=== PATIENT | female | born 1960 | race Caucasian/White ===

== ENCOUNTER 2020-04-09 10:51 | Outpatient (CLI) | payer OTHER, SELFPAY ==
--- NOTE | ~2020-04-09 | XR_ITS ---
XR shoulder RT min 2V DATE: 04/09/2020 11:15 INDICATION: Right shoulder lateral pain. No injury. TECHNIQUE: 4 views COMPARISON: None FINDINGS: Surgical overlie the lower cervical area left and right of midline. Surgical clips overlie the right axilla. No fracture, dislocation, periosteal reaction or bone destruction or abnormal soft tissue calcificati on of the right shoulder is detected. Normal alignment at the acromioclavicular and glenohumeral join ts. IMPRESSION: No significant radiographic abnormality of the right shoulder Reviewed, dictated and finalized at location B.
== END 2020-04-09 10:52 | disposition home or self-care (01) ==
LOC: ANHIMG 10:57
PROVIDERS: PCP Family Medicine; Visit Provider Orthopaedic Surgery
DX: M25.511 Pain in right shoulder (principal)
CPT/HCPCS: 73030

== ENCOUNTER 2021-01-23 08:55 | Outpatient (CLI) | payer OTHER, SELFPAY ==
[2021-01-23 09:31] LABS: Basophils Absolute Auto 0.1 K/mm3 (0.0-0.1); Basophils Percent Auto 0.8 % (0.2-1.2); Eosinophils Absolute Auto 0.2 K/mm3 (0-0.3); Eosinophils Percent Auto 2.3 % (0-4.4); Hematocrit 39.8 % (37.0-47.0); Hemoglobin 13.4 g/dL (12.0-15.0); Immature Granulocyte Absolute 0.02 K/mm3 (0.00-0.031); Immature Granulocyte Percent A 0.2 % (0-0.5); Lymphocytes Absolute Auto 2.95 K/mm3 (0.9-3.2); Lymphocytes Percent Auto 34.3 % (18.3-44.2); Mean Corpuscular HGB Conc 33.7 g/dl (32-36); Mean Corpuscular Hemoglobin 29.2 pg (26-34); Mean Corpuscular Volume 86.7 fl (80-100); Mean Platelet Volume 10.4 fl (7.4-10.4); Monocytes Absolute Auto 0.6 K/mm3 (0.1-0.6); Monocytes Percent Auto 7.2 % (2.6-8.5); Neutrophils Absolute Auto 4.8 K/mm3 (1.3-6.7); Neutrophils Percent Auto 55.2 % (45.5-73.1); Platelet Count Result 270 k/mm3 (150-375); Red Blood Count 4.59 M/mm3 (4.2-5.4); Red Cell Distribution Width 11.9 % (11.5-14.5); White Blood Count 8.6 K/mm3 (4.5-10.0)
[2021-01-23 09:48] LABS: Alanine Aminotransferase 21 U/L (4-35); Albumin Level 4.6 g/dL (3.5-5.1); Alkaline Phosphatase 57 U/L (38-126); Anion Gap 4 mmol/L (8-16); Aspartate Amino Transferase 30 U/L (14-36); Bilirubin,Total 0.2 mg/dL (0.2-1.3); Blood Urea Nitrogen 19 mg/dL (7-17); Calcium 9.4 mg/dL (8.4-10.2); Carbon Dioxide 31 mmol/L (22-30); Chloride 105 mmol/L (98-107); Cholesterol 208 mg/dL (0-200); Estimated Glomerular Filt Rate > 60; Glucose 127 mg/dL (65-105); HDL Direct 47 mg/dL; Potassium 4.8 mmol/L (3.4-5.0); Sodium 140 mmol/L (137-145); Triglycerides 143 mg/dL (<150)
[2021-01-23 09:54] LABS: Creatinine Urine 261.9 mg/dL
[2021-01-23 09:55] LABS: Hemoglobin A1C 6.2 % (<5.7)
[2021-01-23 09:57] LABS: MALB Creatinine Ratio 5.7 mg/g (0-30); Microalbumin Urine Random 14.8 mg/L (0-16.7)
[2021-01-23 09:59] LABS: LDL Cholesterol Direct 110 mg/dL
[2021-01-23 10:18] LABS: Thyroid Stimulating Hormone < 0.015 uIU/mL (0.465-4.680)
[2021-01-23 10:25] LABS: Free T4 Free Thyroxine 1.56 ng/mL (0.78-2.19); Vitamin D 25 Hydroxy 30.5 ng/mL
[2021-02-19 16:13] LABS: Urine Cotinine NEGATIVE
== END 2021-01-23 08:56 | disposition home or self-care (01) ==
PROVIDERS: PCP Family Medicine; Visit Provider Nurse Practitioner Family
DX: E55.9 Vitamin D deficiency, unspecified (principal); Z13.220 Encounter for screening for lipoid disorders; E03.9 Hypothyroidism, unspecified; E11.9 Type 2 diabetes mellitus without complications; K76.0 Fatty (change of) liver, not elsewhere classified; I10 Essential (primary) hypertension
CPT/HCPCS: 36415; 80053; 80061; 82043; 82306; 83036; 84439; 84443; 85025

== ENCOUNTER → 2021-06-26 11:10 | Outpatient (CLI) | payer OTHER, SELFPAY ==
--- NOTE | ~2021-06-26 | MM_ITS ---
EXAMINATION: MM screening [facility] BI w esvin HISTORY: Screening mammogram TECHNIQUE: Craniocaudal and mediolateral oblique 3-D tomosynthesis images were obtained and synthetic 2-D images were generated. CAD analysis was submitted and interpreted. COMPARISON: 06/17/2011, 05/09/2009, 05/08/2008 BREAST PARENCHYMAL COMPOSITION: There are scattered areas of fibroglandular density. FINDINGS: There are stable lumpectomy changes of the right breast. There is no evidence of suspicious mass, calcification, or architectural distortion to suggest malignancy in either breast. There has b een no suspicious interval change. IMPRESSION: 1. No mammographic evidence of malignancy. 2. Recommend routine screening mammography in one year. BI-RADS Category 2: Benign finding(s). Reviewed, dictated and finalized at location B.
== END ==
PROVIDERS: PCP Family Medicine; Visit Provider Nurse Practitioner Family
DX: Z12.31 Encounter for screening mammogram for malignant neoplasm of breast (principal)
CPT/HCPCS: 77063; 77067

== ENCOUNTER 2022-02-05 09:33 | Outpatient (CLI) | payer OTHER, SELFPAY ==
[2022-02-05 10:29] LABS: Basophils Absolute Auto 0.1 K/mm3 (0.0-0.1); Basophils Percent Auto 0.9 % (0.2-1.2); Eosinophils Absolute Auto 0.2 K/mm3 (0-0.3); Eosinophils Percent Auto 2.9 % (0-4.4); Hematocrit 40.2 % (37.0-47.0); Hemoglobin 13.2 g/dL (12.0-15.0); Immature Granulocyte Absolute 0.02 K/mm3 (0.00-0.031); Immature Granulocyte Percent A 0.3 % (0-0.5); Lymphocytes Absolute Auto 2.65 K/mm3 (0.9-3.2); Lymphocytes Percent Auto 35.2 % (18.3-44.2); Mean Corpuscular HGB Conc 32.8 g/dl (32-36); Mean Corpuscular Hemoglobin 29.9 pg (26-34); Mean Platelet Volume 10.7 fl (7.4-10.4); Monocytes Absolute Auto 0.5 K/mm3 (0.1-0.6); Monocytes Percent Auto 6.6 % (2.6-8.5); Neutrophils Absolute Auto 4.1 K/mm3 (1.3-6.7); Neutrophils Percent Auto 54.1 % (45.5-73.1); Platelet Count Result 233 k/mm3 (150-375); Red Blood Count 4.42 M/mm3 (4.2-5.4); Red Cell Distribution Width 12.3 % (11.5-14.5); White Blood Count 7.5 K/mm3 (4.5-10.0)
[2022-02-05 10:46] LABS: Alanine Aminotransferase 21 U/L (6-35); Albumin Level 4.6 g/dL (3.5-5.1); Alkaline Phosphatase 55 U/L (38-126); Anion Gap 8 mmol/L (8-16); Aspartate Amino Transferase 28 U/L (14-36); Bilirubin,Total 0.3 mg/dL (0.2-1.3); Blood Urea Nitrogen 14 mg/dL (7-17); Calcium 8.9 mg/dL (8.4-10.2); Carbon Dioxide 26 mmol/L (22-30); Chloride 104 mmol/L (98-107); Cholesterol 205 mg/dL (0-200); Estimated Glomerular Filt Rate > 60; Glucose 117 mg/dL (65-110); HDL Direct 44 mg/dL; Potassium 4.7 mmol/L (3.4-5.0); Sodium 138 mmol/L (137-145); Triglycerides 109 mg/dL (<150)
[2022-02-05 10:57] LABS: LDL Cholesterol Direct 123 mg/dL
[2022-02-05 11:05] LABS: MALB Creatinine Ratio 10.9 mg/g (0-30); Microalbumin Urine Random 17.6 mg/L (0-16.7)
[2022-02-05 11:13] LABS: Free T4 Free Thyroxine 1.92 ng/mL (0.78-2.19)
== END 2022-02-05 09:34 | disposition home or self-care (01) ==
LOC: ANHLAB 09:35
PROVIDERS: PCP Family Medicine; Visit Provider Physician Assistant Medical
DX: I10 Essential (primary) hypertension (principal); E11.9 Type 2 diabetes mellitus without complications; E78.5 Hyperlipidemia, unspecified; E03.9 Hypothyroidism, unspecified
CPT/HCPCS: 36415; 80053; 80061; 82043; 83036; 84439; 84443; 85025

== ENCOUNTER 2022-03-12 01:31 | Day surgery (SDC) | payer OTHER, SELFPAY ==
[2022-02-23 11:59] VITALS: BMI 29.7
--- NOTE | 2022-03-11 12:21 | WPDANESEPPF ---
Anes - Initial Pre Proc Eval Procedure: Operation Date: 03/12/22 11:30 Proposed Procedures p Screening Colonoscopy - Sanjay Mendieta MD Date/Time: 03/11/22 12:21 Surgeon: Sanjay Mendieta MD Pre Op Diagnosis: family hx of colon ca Patient Data Age: 61 Gender: F Height: 1.68 m Weight: 83.6 kg Allergies Allergy/AdvReac Type Severity Reaction Status Date / Time acetaminophen Allergy Intermediate ITCHING Verified 03/12/22 10:14 hydrocodone Allergy Intermediate ITCHING Verified 03/12/22 10:14 Mblcegf-DPW-KcA Reductase AdvReac Intermediate Muscle Verified 03/12/22 10:14 Inhibitor aches [Nlpigmm-Alh-Dry Reductase Inhibitor] Home Medications Medication Instructions Recorded Confirmed Type aspirin 81 mg tablet,delayed 81 mg PO DAILY 04/08/20 03/12/22 History release (Adult Aspirin Regimen) carvedilol 6.25 mg tablet 6.25 mg PO Q12H #60 tabs 12/26/20 03/12/22 Rx escitalopram oxalate 20 mg tablet 20 mg PO DAILY #30 tabs 12/26/20 03/12/22 Rx ezetimibe 10 mg tablet (Zetia) 10 mg PO DAILY #90 tabs 02/09/22 03/12/22 Rx levothyroxine 137 mcg tablet 137 mcg PO DAILY #90 tabs 02/12/22 03/12/22 Rx losartan 50 mg tablet 50 mg PO DAILY #30 tabs 03/09/22 03/12/22 Rx metformin 500 mg tablet 1,000 mg PO BID #120 tabs 03/09/22 03/12/22 Rx Patient hx anesthesia problems: none Family hx anesthesia problems: none Results Review: All pre-operative results and documents have been reviewed as part of the pre-operative evaluation. [facility] Past Medical History Medical History BMI 29.0-29.9,adult Breast cancer (~2003) Diabetes Dietary counseling and surveillance Hypertension Hypothyroidism, unspecified Thyroid cancer (~2012) Surgical History Surgical History H/O lumpectomy (~2003) H/O thyroidectomy (~2007) H/O: hysterectomy (~2012) Family History Family History Mother Family history of obesity Family history of mental disorder Family history of cataracts Family history of elevated blood lipids Hypertension Grandparent Family history of obesity Depression Cerebrovascular accident Family history of Alzheimer's disease Family history of lung cancer Diabetes mellitus Sibling Family history of mental disorder Family history of elevated blood lipids Carcinoma of colon Father Family history of diabetes mellitus in first degree relative Diabetes mellitus Social History Social History Smoking status: Never smoker Second hand tobacco smoke exposure: No Alcohol intake: current Alcohol use details: socially Substance use: never Substance use type: does not use Living arrangements: with family 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 Informed Consent: The patient's anesthetic plan and its attendant risks and benefits were discussed with the patient/family/POA. Questions were solicited and answers provided to the satisfaction of the patient/family/POA.
[2022-03-12 10:15] VITALS: BP 143/94; PULSE 77; RESP 18; TEMP 36.6; O2SAT 98
[2022-03-12] MEDS: LACTATED RINGERS 1,000 ML 150 ML IV CONT (10:25)
--- NOTE | 2022-03-12 10:29 | WPDGICN ---
Assessment and Plan Assessment and plan (1) Family hx of colon cancer: Code(s): Z80.0 - Family history of malignant neoplasm of digestive organs Status: Acute Assessment and Plan: Patient has a family history of colon cancer in her brother. She her son also has colon polyps. Plan is for surveillance colonoscopy now and consider this at 5 year intervals in the future. Further recommendations will be given after colonoscopy. GI Consult Note Consult date/time: 03/12/22 10:29 Reason for consult: Family history of colon cancer. HPI: Rosemary Lopez is a 61 year old female Presents for screening colonoscopy. Patient's family history is significant her brother had colon cancer. Her son had colon polyps. Patient reports her current weight appetite bowel movements are normal. She denies abdominal pain. She has had no bleeding. She does report prior colonoscopy 10 years ago was unremarkable. She presents today for neoplasia screening colonoscopy. Review of Systems Review of Systems: Review of systems noncontributory. PMFSH Past Medical History Medical History BMI 29.0-29.9,adult Breast cancer (~2003) Diabetes Dietary counseling and surveillance Hypertension Hypothyroidism, unspecified Thyroid cancer (~2012) Surgical History Surgical History H/O lumpectomy (~2003) H/O thyroidectomy (~2007) H/O: hysterectomy (~2012) Family History Family History Mother Family history of obesity Family history of mental disorder Family history of cataracts Family history of elevated blood lipids Hypertension Grandparent Family history of obesity Depression Cerebrovascular accident Family history of Alzheimer's disease Family history of lung cancer Diabetes mellitus Sibling Family history of mental disorder Family history of elevated blood lipids Carcinoma of colon Father Family history of diabetes mellitus in first degree relative Diabetes mellitus Social History Social History Smoking status: Never smoker Second hand tobacco smoke exposure: No Alcohol intake: current Alcohol use details: socially Substance use: never Substance use type: does not use Living arrangements: with family 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 Gender identity (if verbalized by the patient): Female Spiritual care concerns: No Meds Home Medications and Allergies Home Medications Medication Instructions Recorded Confirmed Type aspirin 81 mg tablet,delayed 81 mg PO DAILY 04/08/20 03/12/22 History release (Adult Aspirin Regimen) carvedilol 6.25 mg tablet 6.25 mg PO Q12H #60 tabs 12/26/20 03/12/22 Rx escitalopram oxalate 20 mg tablet 20 mg PO DAILY #30 tabs 12/26/20 03/12/22 Rx sodium sul 1.479 gram-potas ch See Rx Instructions PO PER PKG DIR 02/04/22 03/12/22 Rx 0.188 gram-magnes sul 0.225 gram #24 tabs tablet (Sutab) ezetimibe 10 mg tablet (Zetia) 10 mg PO DAILY #90 tabs 02/09/22 03/12/22 Rx levothyroxine 137 mcg tablet 137 mcg PO DAILY #90 tabs 02/12/22 03/12/22 Rx losartan 50 mg tablet 50 mg PO DAILY #30 tabs 03/09/22 03/12/22 Rx metformin 500 mg tablet 1,000 mg PO BID #120 tabs 03/09/22 03/12/22 Rx Allergies Allergy/AdvReac Type Severity Reaction Status Date / Time acetaminophen Allergy Intermediate ITCHING Verified 03/12/22 10:14 hydrocodone Allergy Intermediate ITCHING Verified 03/12/22 10:14 Uhfliug-CBY-WnQ Reductase AdvReac Intermediate Muscle Verified 03/12/22 10:14 Inhibitor aches [Vufzprz-Nrm-Iro Reductase Inhibitor] Vital Signs Vital Signs - 24 hr 03/12/22 10:15 Temperature 97.8 F Pulse Rate 77 Respiratory Rate 18 Blood Pressure 143/94 H Pulse Oximetry 98 Oxygen Delivery Room Air Exam Narr
[2022-03-12 10:31] LABS: Glucose Point of Care 128 mg/dl (65-105)
[2022-03-12 11:22] VITALS: BP 137/88; PULSE 73; RESP 22; O2SAT 95
[2022-03-12 11:32] VITALS: BP 134/88; PULSE 76; RESP 20; O2SAT 98
[2022-03-12 11:42] VITALS: BP 146/96; PULSE 68; RESP 20; O2SAT 100
== END 2022-03-12 11:51 | disposition home or self-care (01) ==
PROVIDERS: PCP Family Medicine; Visit Provider Internal Medicine Gastroenterology
PROC: 0DJD8ZZ Inspection of Lower Intestinal Tract, Via Natural or Artificial Opening Endoscopic (ICD-10-PCS; CPT 45378; principal; 2022-03-12 11:30)
DX: Z12.11 Encounter for screening for malignant neoplasm of colon (principal); K63.5 Polyp of colon; Z80.0 Family history of malignant neoplasm of digestive organs; K64.8 Other hemorrhoids; E11.9 Type 2 diabetes mellitus without complications; I10 Essential (primary) hypertension; E03.9 Hypothyroidism, unspecified; Z85.850 Personal history of malignant neoplasm of thyroid; Z79.82 Long term (current) use of aspirin; Z79.84 Long term (current) use of oral hypoglycemic drugs
CPT/HCPCS: 45380; 82948; 88305; J2704; J7120

== ENCOUNTER 2022-05-22 07:23 | Outpatient (CLI) | payer OTHER, SELFPAY ==
--- NOTE | ~2022-05-22 | US_ITS ---
EXAMINATION: US abdomen complete DATE: 05/22/2022 07:57 INDICATION: Right upper quadrant abdominal pain radiating to the back. TECHNIQUE: Multiple grayscale and Doppler ultrasound images of the abdomen were obtained. COMPARISON: None FINDINGS: The visualized portions of the head and body of the pancreas are normal. The liver is ana l without focal lesion. No liver surface nodularity. There is normal flow in main portal vein. The ga llbladder is normal in size. No gallstones or gallbladder wall thickening. There was no sonographic M urphy sign. The common duct is normal measures 3 mm. The kidneys are normal in size. There is a 2.8 c m hypoechoic mass in left kidney. The spleen is normal in size. Abdominal aorta and inferior vena cav a are normal. IMPRESSION: 1. 2.8 cm mass in left kidney, which may be a cyst or less likely a neoplasm. Abdomen CT without and with contrast is recommended. Reviewed, dictated and finalized at location A. IMPRESSION: 1. 2.8 cm mass in left kidney, which may be a cyst or less likely a neoplasm. A bdomen CT without and with contrast is recommended.
== END 2022-05-22 07:24 ==
LOC: MICIMG 07:24
PROVIDERS: PCP Family Medicine; Visit Provider Nurse Practitioner Family
DX: R10.11 Right upper quadrant pain (principal); N28.89 Other specified disorders of kidney and ureter
CPT/HCPCS: 76700

== ENCOUNTER 2022-05-22 07:24 | Outpatient (CLI) | payer OTHER, SELFPAY ==
--- NOTE | ~2022-05-22 | XR_ITS ---
EXAM: XR knee LT 3V DATE: 05/22/2022 07:57 HISTORY: M25.562 - Pain in left knee . COMPARISON: None available. FINDINGS: Normal mineralization. No fracture or dislocation. No lytic or blastic lesion. Mild left k nee osteoarthritic change. No erosion or periosteal change. Soft tissues within normal limits. Small left knee joint effusion IMPRESSION: No acute osseous finding in the left knee. Reviewed, dictated and finalized at location K.
== END 2022-05-22 07:25 ==
LOC: MICIMG 07:26
PROVIDERS: PCP Family Medicine; Visit Provider Orthopaedic Surgery
DX: M25.562 Pain in left knee (principal)
CPT/HCPCS: 73562

== ENCOUNTER 2022-06-10 06:55 | Outpatient (CLI) | payer OTHER, SELFPAY ==
--- NOTE | ~2022-06-10 | CT_ITS ---
EXAMINATION: CT abdomen wo/w con DATE: 06/10/2022 07:27 INDICATION: Follow-up left renal mass TECHNIQUE: Computed tomography (CT) of the abdomen and pelvis was performed without and with 100 cc O mnipaque 350 intravenous contrast. The dose-length product was 861.70 mGy-cm. Automated exposure cont rol and iterative reconstruction technique were employed. COMPARISON: Ultrasound dated 05/22/2022. FINDINGS: Lung bases are unremarkable. Heart size normal. No significant pleural or pericardial effus ion. There is a 2.5 cm low-density mass in the lateral margin of the left kidney which is nonenhancin g measuring 20 Hounsfield units pre and postcontrast, consistent with a cyst. No significant hydronep hrosis or stones. Nonobstructive bowel gas pattern. There is hepatomegaly. The spleen, pancreas, adre nal glands are unremarkable. There is a small subcentimeter hypodensity of the right kidney, most lik armani benign cysts. Gallbladder is contracted. No free air or free fluid. No lymphadenopathy. No signif icant vascular abnormality. IMPRESSION: 1. Nonenhancing 2.5 cm left renal cyst. 2: Hepatomegaly. Reviewed, dictated and finalized at location A.
[2022-06-10 07:22] LABS: Estimated Glomerular Filt Rate > 60
== END 2022-06-10 06:56 | disposition home or self-care (01) ==
PROVIDERS: PCP Family Medicine; Visit Provider Nurse Practitioner Family
DX: N28.89 Other specified disorders of kidney and ureter (principal); R16.0 Hepatomegaly, not elsewhere classified
CPT/HCPCS: 74170; Q9967

== ENCOUNTER 2022-12-17 09:41 | Outpatient (CLI) | payer OTHER, SELFPAY ==
--- NOTE | ~2022-12-17 | XR_ITS ---
XR thoracic spine 3V DATE: 12/17/2022 09:54 INDICATION: Back pain. No injury. TECHNIQUE: AP, lateral, swimmer views COMPARISON: None FINDINGS: Degenerative disc disease is noted in the lower cervical spine. There is mild upper thoracic dextroscoliosis. Degenerative spurring involving primarily the mid to lower thoracic spine. No fracture or dislocation or bone destruction. The thoracic pedicles are intact. No paraspinal soft tissue thickening. IMPRESSION: Degenerative changes of the lower cervical and thoracic spine Mild upper thoracic dextroscoliosis Reviewed, dictated and finalized at location B.
== END 2022-12-17 09:42 | disposition home or self-care (01) ==
PROVIDERS: PCP Family Medicine; Visit Provider Nurse Practitioner
DX: M50.30 Other cervical disc degeneration, unspecified cervical region (principal); M51.34 Other intervertebral disc degeneration, thoracic region
CPT/HCPCS: 72072

== ENCOUNTER 2023-06-27 13:16 | Outpatient (CLI) | payer OTHER, SELFPAY ==
--- NOTE | ~2023-06-27 | XR_ITS ---
EXAMINATION: XR shoulder RT min 2V DATE: 06/27/2023 13:33 INDICATION: Right shoulder injury. Fall from bed. TECHNIQUE: 4 views of right shoulder were obtained. COMPARISON: Right shoulder radiographs 04/09/2020 FINDINGS: There is widening of acromioclavicular joint. No fracture. There is mild osteoarthritis of glenohumeral joint. There are surgical clips in right chest. IMPRESSION: 1. Widening of right acromioclavicular joint, new from 04/09/2020. If the patient has not had right sh oulder surgery since the prior exam, this finding is consistent with type 1 acromioclavicular separat ion. 2. Mild osteoarthritis of glenohumeral joint. Reviewed, dictated and finalized at location A. IMPRESSION: 1. Widening of right acromioclavicular joint, new from 04/09/2020. If the patien t has not had right shoulder surgery since the prior exam, this finding is cons istent with type 1 acromioclavicular separation. 2. Mild osteoarthritis of glenohumeral joint.
== END 2023-06-27 13:17 | disposition home or self-care (01) ==
LOC: ANHIMG 13:18
PROVIDERS: PCP Family Medicine; Visit Provider Nurse Practitioner
DX: M19.011 Primary osteoarthritis, right shoulder (principal); M25.811 Other specified joint disorders, right shoulder
CPT/HCPCS: 73030

== ENCOUNTER → 2023-07-22 10:29 | Outpatient (CLI) | payer OTHER, SELFPAY ==
--- NOTE | ~2023-07-22 | MM_ITS ---
EXAMINATION: MM screening [facility] w esvin HISTORY: Screening mammogram, history of right breast cancer TECHNIQUE: Craniocaudal and mediolateral oblique 3-D tomosynthesis images were obtained and synthetic 2-D images were generated. CAD analysis was submitted and interpreted. COMPARISON: 06/26/2021, 06/17/2011, 05/09/2009 BREAST PARENCHYMAL COMPOSITION: There are scattered areas of fibroglandular density. FINDINGS: Stable lumpectomy changes are again noted in the right breast. No suspicious mass, calcific ation, or architectural distortion are identified in either breast to suggest malignancy. There has b een no suspicious interval change. IMPRESSION: 1. No mammographic evidence of malignancy. 2. Recommend routine screening mammography in one year. BI-RADS Category 2: Benign finding(s). Reviewed, dictated and finalized at location A.
== END ==
PROVIDERS: PCP Family Medicine; Visit Provider Nurse Practitioner Family
DX: Z12.31 Encounter for screening mammogram for malignant neoplasm of breast (principal)
CPT/HCPCS: 77063; 77067

== ENCOUNTER 2023-09-09 07:44 | Outpatient (CLI) | payer OTHER, SELFPAY ==
[2023-09-09 08:11] LABS: Hematocrit 40.5 % (37.0-47.0); Hemoglobin 13.7 g/dL (12.0-15.0); Mean Corpuscular HGB Conc 33.8 g/dl (32-36); Mean Corpuscular Hemoglobin 30.6 pg (26-34); Mean Corpuscular Volume 90.6 fl (80-100); Mean Platelet Volume 10.1 fl (7.4-10.4); Platelet Count Result 260 k/mm3 (150-375); Red Blood Count 4.47 M/mm3 (4.2-5.4); Red Cell Distribution Width 12.2 % (11.5-14.5); White Blood Count 8.4 K/mm3 (4.5-10.0)
[2023-09-09 08:22] LABS: Alanine Aminotransferase 21 U/L (6-35); Albumin Level 4.4 g/dL (3.5-5.1); Alkaline Phosphatase 60 U/L (38-126); Anion Gap 11 mmol/L (8-16); Aspartate Amino Transferase 26 U/L (14-36); Bilirubin,Total 0.5 mg/dL (0.2-1.3); Blood Urea Nitrogen 13 mg/dL (7-17); Calcium 9.5 mg/dL (8.4-10.2); Carbon Dioxide 25 mmol/L (22-30); Chloride 103 mmol/L (98-107); Cholesterol 219 mg/dL (0-200); Estimated Glomerular Filt Rate > 60; Glucose 135 mg/dL (65-110); HDL Direct 46 mg/dL; Potassium 4.4 mmol/L (3.4-5.0); Sodium 139 mmol/L (137-145); Triglycerides 184 mg/dL (<150)
[2023-09-09 08:33] LABS: LDL Cholesterol Direct 121 mg/dL
[2023-09-09 08:57] LABS: Hemoglobin A1C 6.5 % (<5.7)
[2023-09-09 09:04] LABS: MALB Creatinine Ratio 11.9 mg/g (0-30); Microalbumin Urine Random 23.6 mg/L (0-16.7)
[2023-09-09 09:14] LABS: Vitamin D 25 Hydroxy 33.2 ng/mL
== END 2023-09-09 07:45 | disposition home or self-care (01) ==
LOC: ANHLAB 07:47
PROVIDERS: PCP Family Medicine; Visit Provider Nurse Practitioner Family
DX: E78.5 Hyperlipidemia, unspecified (principal); E11.9 Type 2 diabetes mellitus without complications; I10 Essential (primary) hypertension; E03.9 Hypothyroidism, unspecified; E55.9 Vitamin D deficiency, unspecified
CPT/HCPCS: 36415; 80053; 80061; 82043; 82306; 83036; 84436; 84443; 85027

== ENCOUNTER 2024-03-01 07:19 | Outpatient (CLI) | payer OTHER, SELFPAY ==
[2024-03-01 08:22] LABS: Thyroid Stimulating Hormone 0.036 uIU/mL (0.465-4.680)
[2024-03-01 08:47] LABS: Free T4 Free Thyroxine 1.72 ng/mL (0.78-2.19)
[2024-03-05 18:33] LABS: Thyroglobulin <0.1 ng/mL; Thyroglobulin Antibodies <1 IU/mL (< or = 1)
== END 2024-03-01 07:20 | disposition home or self-care (01) ==
PROVIDERS: PCP Family Medicine; Visit Provider Internal Medicine
DX: C73 Malignant neoplasm of thyroid gland (principal)
CPT/HCPCS: 36415; 84432; 84439; 84443; 86800

== ENCOUNTER 2024-04-07 07:30 | Outpatient (CLI) | payer OTHER, SELFPAY ==
--- NOTE | ~2024-04-07 | US_ITS ---
US soft tissue head and neck 04/07/2024 07:58 Indication: Thyroid cancer. Status post thyroidectomy. Procedure: High-resolution soft tissue ultrasound of the neck Comparison: No prior studies for comparison. Findings: In the left neck there is a normal-appearing lymph node measuring 9 mm with fatty hilum. No other masses are identified. No abnormal fluid collections. Impression: 1: Unremarkable soft tissue ultrasound of the neck. Normal appearing small lymph node present in the left cervical region. Reviewed, dictated and finalized at location B. Impression: 1: Unremarkable soft tissue ultrasound of the neck. Normal appearing small lymp h node present in the left cervical region.
== END 2024-04-07 07:31 | disposition home or self-care (01) ==
PROVIDERS: PCP Family Medicine; Visit Provider Internal Medicine
DX: E03.9 Hypothyroidism, unspecified (principal); C73 Malignant neoplasm of thyroid gland
CPT/HCPCS: 76536

== ENCOUNTER 2024-06-26 08:19 | Outpatient (CLI) | payer OTHER, SELFPAY ==
[2024-06-26 09:42] LABS: Free T4 Free Thyroxine 1.16 ng/mL (0.78-2.19)
[2024-06-29 09:18] LABS: Thyroglobulin <0.1 ng/mL; Thyroglobulin Antibodies <1 IU/mL (< or = 1)
== END 2024-06-26 08:20 | disposition home or self-care (01) ==
LOC: ANHLAB 08:21
PROVIDERS: PCP Family Medicine; Visit Provider Internal Medicine
DX: C73 Malignant neoplasm of thyroid gland (principal); E03.9 Hypothyroidism, unspecified
CPT/HCPCS: 36415; 84432; 84439; 84443; 86800

== ENCOUNTER 2024-08-27 13:15 | Outpatient (CLI) | payer OTHER, SELFPAY ==
--- NOTE | ~2024-08-27 | MM_ITS ---
EXAMINATION: MM screening [facility] w esvin HISTORY: Screening TECHNIQUE: Craniocaudal and mediolateral oblique 3-D tomosynthesis images were obtained and synthetic 2-D images were generated. CAD analysis was submitted and interpreted. COMPARISON: Comparison to multiple prior studies sequentially, with oldest reviewed study dated 04/2021. BREAST PARENCHYMAL COMPOSITION: Not dense: There are scattered areas of fibroglandular density. FINDINGS: There is no evidence of suspicious mass, calcification, or architectural distortion to sugg est malignancy in either breast. There has been no suspicious interval change. IMPRESSION: 1. No mammographic evidence of malignancy. 2. Recommend routine screening mammography in one year. BI-RADS Category 1: Negative Reviewed, dictated and finalized at location B. 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
== END 2024-08-27 13:16 | disposition home or self-care (01) ==
LOC: MICIMG 13:16
PROVIDERS: PCP Family Medicine; Visit Provider Family Medicine
DX: Z12.31 Encounter for screening mammogram for malignant neoplasm of breast (principal)
CPT/HCPCS: 77063; 77067

== ENCOUNTER 2024-11-15 07:11 | Outpatient (CLI) | payer OTHER, SELFPAY ==
[2024-11-15 09:03] LABS: Thyroid Stimulating Hormone 0.023 uIU/mL (0.465-4.680)
[2024-11-15 09:11] LABS: Free T4 Free Thyroxine 1.77 ng/dL (0.78-2.19)
== END 2024-11-15 07:12 | disposition home or self-care (01) ==
LOC: ANHLAB 07:12
PROVIDERS: PCP Family Medicine; Visit Provider Internal Medicine
DX: C73 Malignant neoplasm of thyroid gland (principal)
CPT/HCPCS: 36415; 84432; 84439; 84443; 86800

== ENCOUNTER 2024-12-12 14:26 | Outpatient (CLI) | payer OTHER, SELFPAY ==
--- NOTE | ~2024-12-12 | US_ITS ---
US soft tissue abdomen 12/12/2024 14:37 Indication: Left-sided rib region mass and swelling. No pain and no significant interval change. Procedure: High-resolution Limited soft tissue in the area of palpable concern Comparison: CT dated 06/10/2022 Findings: In the area of palpable concern there is an oval slightly hypoechoic encapsulated parallel oriented mass without posterior features or internal vascularity measuring 1.9 x 1.6 x 0.8 cm, most c ompatible with benign lipoma. Impression: 1: Probable benign left breast mass in the area of palpable concern with sonographic characteristics consistent with lipoma. Recommend follow-up ultrasound as clinically warranted. Reviewed, dictated and finalized at location A. Impression: 1: Probable benign left breast mass in the area of palpable concern with sonogr aphic characteristics consistent with lipoma. Recommend follow-up ultrasound as clinically warranted.
== END 2024-12-12 14:27 | disposition home or self-care (01) ==
LOC: MICIMG 14:26
PROVIDERS: PCP Family Medicine; Visit Provider Nurse Practitioner Family
DX: R22.2 Localized swelling, mass and lump, trunk (principal)
CPT/HCPCS: 76705

== ENCOUNTER 2025-02-27 07:50 | Outpatient (CLI) | payer OTHER, SELFPAY ==
[2025-02-27 08:09] LABS: Hematocrit 38.5 % (37.0-47.0); Hemoglobin 12.9 g/dL (12.0-15.0); Mean Corpuscular HGB Conc 33.5 g/dl (32-36); Mean Corpuscular Hemoglobin 29.7 pg (26-34); Mean Corpuscular Volume 88.7 fl (80-100); Mean Platelet Volume 10.2 fl (7.4-10.4); Platelet Count Result 244 k/mm3 (150-375); Red Blood Count 4.34 M/mm3 (4.2-5.4); Red Cell Distribution Width 12.6 % (11.5-14.5); White Blood Count 7.9 K/mm3 (4.5-10.0)
[2025-02-27 08:28] LABS: Hemoglobin A1C 6.4 % (<5.7)
[2025-02-27 09:34] LABS: Alanine Aminotransferase 23 U/L (6-35); Albumin Level 4.3 g/dL (3.5-5.1); Alkaline Phosphatase 50 U/L (38-126); Anion Gap 7 mmol/L (4-12); Aspartate Amino Transferase 28 U/L (14-36); Bilirubin,Total 0.5 mg/dL (0.2-1.3); Blood Urea Nitrogen 18 mg/dL (7-17); Calcium 9.2 mg/dL (8.4-10.2); Carbon Dioxide 28 mmol/L (22-30); Chloride 102 mmol/L (98-107); Cholesterol 224 mg/dL (0-200); Estimated Glomerular Filt Rate > 60; Glucose 167 mg/dL (65-110); HDL Direct 50 mg/dL; Sodium 137 mmol/L (137-145); Total Protein 7.2 g/dL (6.3-8.2); Triglycerides 242 mg/dL (<150)
[2025-02-27 09:55] LABS: LDL Cholesterol Direct 119 mg/dL; Vitamin D 25 Hydroxy 17.8 ng/mL
[2025-02-27 10:42] LABS: Creatinine Urine 128.1 mg/dL; MALB Creatinine Ratio 16.4 mg/g (0-30)
== END 2025-02-27 07:51 | disposition home or self-care (01) ==
PROVIDERS: PCP Family Medicine; Visit Provider Nurse Practitioner Family
DX: E78.5 Hyperlipidemia, unspecified (principal); E11.9 Type 2 diabetes mellitus without complications; I10 Essential (primary) hypertension
CPT/HCPCS: 36415; 80053; 80061; 82043; 82306; 83036; 85027

== ENCOUNTER 2025-05-17 07:45 | Outpatient (CLI) | payer OTHER, SELFPAY ==
[2025-05-17 09:33] LABS: Thyroid Stimulating Hormone 0.670 uIU/mL (0.465-4.680)
[2025-05-17 09:50] LABS: Free T4 Free Thyroxine 1.74 ng/dL (0.78-2.19)
== END 2025-05-17 07:46 | disposition home or self-care (01) ==
LOC: ANHLAB 07:46
PROVIDERS: PCP Family Medicine; Visit Provider Internal Medicine
DX: E03.9 Hypothyroidism, unspecified (principal); E11.9 Type 2 diabetes mellitus without complications; C73 Malignant neoplasm of thyroid gland; E78.5 Hyperlipidemia, unspecified
CPT/HCPCS: 36415; 84439; 84443; 86800

== ENCOUNTER 2025-06-05 10:30 | Outpatient (CLI) | payer OTHER, SELFPAY ==
--- NOTE | ~2025-06-05 | US_ITS ---
US soft tissue head and neck 06/05/2025 11:04 Indication: Thyroid cancer Procedure: Soft tissue ultrasound of the thyroid bed Comparison: Ultrasound dated 04/07/2024 Findings: No residual thyroid tissue is identified. No discrete soft tissue mass or suspicious focus seen. There is cervical lymph nodes bilaterally with normal morphology and preserved fatty sheila and normal shape. Largest lymph node measures 2.2 cm maximum dimension. No abnormal cystic changes, calcifications or abnormal vascularity. Impression: 1: Status post thyroidectomy with no residual thyroid tissue identified. Cervical lymph nodes are benign-appearing including 2.2 cm right node. No sonographic evidence of recurrent disease. Reviewed, dictated and finalized at location O. Impression: 1: Status post thyroidectomy with no residual thyroid tissue identified. Cervic al lymph nodes are benign-appearing including 2.2 cm right node. No sonographic evidence of recurrent disease.
== END 2025-06-05 10:31 | disposition home or self-care (01) ==
LOC: MICIMG 10:31
PROVIDERS: PCP Family Medicine; Visit Provider Internal Medicine
DX: C73 Malignant neoplasm of thyroid gland (principal); E89.0 Postprocedural hypothyroidism
CPT/HCPCS: 76536

== ENCOUNTER 2025-08-28 09:30 | Outpatient (CLI) | payer OTHER, SELFPAY ==
--- NOTE | ~2025-08-28 | MM_ITS ---
EXAMINATION: MM screening [facility] w esvin HISTORY: Screening. Right lumpectomy/partial mastectomy. TECHNIQUE: Craniocaudal and mediolateral oblique 3-D tomosynthesis images were obtained and synthetic 2-D images were generated. CAD analysis was submitted and interpreted. COMPARISON: 2023, 2022, and 2020. BREAST PARENCHYMAL COMPOSITION: Not Dense: There are scattered areas of fibroglandular FINDINGS: No suspicious masses are seen. There are no suspicious calcifications. There are postop changes seen on the right. No unexplained architectural distortion is seen. There are no skin or nipple abnormalities identified. There is no adenopathy seen on the images submitted. IMPRESSION: No mammographic evidence to suggest malignancy is seen. The patient may return to screening mammography as per ACR guidelines. BI-RADS 2 - Benign. Reviewed, dictated and finalized at location C. PRICKER
== END 2025-08-28 09:31 | disposition home or self-care (01) ==
LOC: MICIMG 09:31
PROVIDERS: PCP Family Medicine; Visit Provider Family Medicine
DX: Z12.31 Encounter for screening mammogram for malignant neoplasm of breast (principal)
CPT/HCPCS: 77063; 77067